=== PATIENT | male | born 1965 | race Caucasian/White ===

== ENCOUNTER 2017-08-16 03:26 | Inpatient (IN) | payer MEDICAID ==
[~2017-08-16] VITALS: Ht 172.7 cm; Wt 63.0 kg
[2017-08-16] VITALS (7 sets, daily range): BP systolic 11–124; BP diastolic 60–81
--- NOTE | 2017-08-16 03:43 | NUR ---
PT TO ED VIA TRIAGE W/ C/O CP X 2 DAYS PT WAS [facility]AY[facility] HERE PRIOR FOR SOB GIVEN MEDICATION W/ NO RELIEF NOW STATES HAVING PAINS IN L CHEST WORSE ON INSPIRATION PT TO [facility] IN GOWN ON MONITOR MD AWARE AWAIT ORDERS AND DISPO
--- NOTE | 2017-08-16 03:57 | NUR ---
NO SIGN OF DISTRESS LABS DRAWN XRAY COMPLETE, EKG RESULTED, CONT TO MONITOR AWAIT FURTHER ORDERS
--- NOTE | 2017-08-16 04:11 | NUR ---
AGENCY DOCUMENTATION DONE BY Staff Name/Title - :MARIANGEL RIDDLE Zuu Onln[facility]arry User ID - : Agency Name - :[facility] Time Documented - From - : To - :
--- NOTE | 2017-08-16 04:12 | NUR ---
PT MEDICATED PER MD ORDER
[2017-08-16 04:13] LABS: PLATELET COUNT 215 x10^3mcL (130-400); RED CELL DISTRIBUTION WIDTH 12.8 % (11.5-14.5)
[2017-08-16 04:14] LABS: BASOPHIL % 4.9 % (0-2)
[2017-08-16 04:18] LABS: CALCIUM 8.2 mg/dL (8.5-10.1); CARBON DIOXIDE 27.6 mmol/L (21-32); CHLORIDE SERUM 105 mmol/L (98-107); CREATININE SERUM 0.9 mg/dL (0.7-1.3); GFR1 > 60 mL/min; GLUCOSE SERUM 96 mg/dL (74-106); POTASSIUM SERUM 3.8 mmol/L (3.5-5.1); SODIUM SERUM 137 mmol/L (136-145)
[2017-08-16 04:24] LABS: ALBUMIN 3.6 g/dL (3.4-5.0); ALKALINE PHOSPHATASE 86 U/L (46-116); ALT/SGPT 28 U/L (16-63); AST/SGOT 24 U/L (15-37); BILIRUBIN TOTAL 0.37 mg/dL (0.20-1.00); TOTAL PROTEIN, SERUM 7.3 g/dL (6.4-8.2)
--- NOTE | 2017-08-16 05:26 | NUR ---
REPORT CALLED TO JONY RN ALL QUESTIONS ASKED AND ANSWERED, PT TX TO FLOOR VIA [facility] IN STABLE CONDITION W/ ALL PERSONAL BELONGINGS
--- NOTE | 2017-08-16 05:35 | NUR ---
RECEIVED PT AWAKE AND ALERT. AOX4. VERBAL WITH CLEAR SPEECH. NO S/S OF RESPIRATORY DISTRESS NOTED. LUNGS CLEAR BILATERALLY. ON TELE 15, SB. PT C/O 5/10 LEFT CHEST PAIN. REFUSED ANY PAIN MEDICATION AT THIS TIME. NO S/S OF DISTRESS NOTED. ABD SOFT AND FLAT. BOWEL SOUNDS ACTIVE. DENIES ANY DISCOMFORT. SKIN WARM AND DRY. IV TO RIGHT WRIST PATENT AND INTACT. NO S/S OF INFECTION NOTED. NO EDEMA NOTED. PULSES PALPABLE. SPOUSE AT BEDSIDE. CALL LIGHT WITHIN REACH. WILL CONTINUE TO MONITOR.
[2017-08-16 06:17] LABS: MAGNESIUM 2.2 mg/dL (1.8-2.4); PHOSPHOROUS 3.9 mg/dL (2.5-4.9)
[2017-08-16 06:20] LABS: CHOLESTEROL/HDL RATIO 4.7
[2017-08-16 06:24] LABS: T3 TOTAL 1.07 ng/mL
[2017-08-16 06:29] LABS: FREE T4 0.88 ng/dL (0.76-1.46); FREE THYROXINE INDEX 2.3 ug/dL (1.4-4.5); T4(THYROXINE) 6.9 ug/dL (4.7-13.3)
--- NOTE | 2017-08-16 07:30 | NUR ---
RECEIVED PT IN BED, A/A/O X4, CALM, COOPERATIVE, BY BEDSIDE. ON TELE # 15, SB, HR 51, DENIES CHEST PAIN OR DISCOMFORT AT THIS TIME. IV SITE AT [facility], RUNNING NS 90 ML/HR. SIDE RAILS UP X 2, BED IN LOW POSITION, CALL LIGHT WITHIN REACH. WILL CONTINUE TO MONITOR.
[2017-08-16 08:09] LABS: AMPHETAMINE QUAL UR NONE DETECTED (NEG <=1000); UA SPECIFIC GRAVITY 1.015 (1.005-1.035); microscopic required? YES; urine erythrocyte TRACE (NEGATIVE)
--- NOTE | 2017-08-16 09:20 | NUR ---
PT IN BED, BY BEDSIDE. PT WATCHING TV. NO RESPIRATORY DISTRESS, PAIN, OR DISCOMFORT AT THIS TIME.
--- NOTE | 2017-08-16 09:52 | NUR ---
ECHO COMPLETED.FAMILY PRESENT
--- NOTE | 2017-08-16 11:45 | NUR ---
PT WALKING IN THE HALLWAY, WALKING WITH HIM. NO RESPIRATORY DISTRESS, PAIN, OR DISCOMFORT NOTED. WILL CONTINUE TO MONITOR.
--- NOTE | 2017-08-16 13:15 | NUR ---
PT IN BED, WATCHING TV WITH . NO RESPIRATORY DISTRESS, PAIN, OR DISCOMFORT NOTED. WILL CONTINUE TO MONITOR.
--- NOTE | 2017-08-16 15:23 | NUR ---
PT C/O L-SIDED CHEST PAIN ("FEELING OF LEON", 5/10 THAT) DOES NOT RADIATE. PT WAS GIVEN NITROGLYCERIN SL X 1, AND WAS EFFECTIVE. EXPLAINED TO PT THAT DR TEAGUE WILL BE COMING IN TO SEE HIM SOMETIME TODAY. PT AND VERBALIZED UNDERSTANDING. WILL CONTINUE TO MONITOR.
--- NOTE | 2017-08-16 17:30 | NUR ---
PT WALKING THE HALLWAY WITH . PT STATES THAT HE FEELS GOOD. NO RESPIRATORY DISTRESS, PAIN, OR DISCOMFORT NOTED. WILL ENDORSE TO NOC SHIFT.
--- NOTE | 2017-08-16 19:40 | NUR ---
PT RESTING AT BEDSIDE, AT BEDSIDE WELL ASSISTING IN TRANSLATING. PT DENIES CP AT THIS TIME, NO SOB OR PALPITATIONS NOTED. RESP EVEN AND UNLABORED ON RA, LUNGS CTA. TELE # 15, SB 50. PT IS ASYMPTOMATIC AT THIS TIME. IV INFUSING TO RT WRIST, NA @ 90ML/HR. NO REDNESS, SWELLING OR PAIN NOTED AT THIS TIME. CALL LIGHT WITHIN REACH, BED IN LOWEST POSITON, WILL CONTINUE TO MONITOR.
--- NOTE | 2017-08-17 05:22 | NUR ---
PT RESTING WELL THROUGHOUT SHIFT W/ MINIMAL INTERRUPTIONS. NO C/O PAIN DURING SHIFT, DENIES CP, DENIES SOB, DENIES DIZZINESS. IN INFUSING TO RT WRIST, NO REDNESS SWELLING OR PAIN NOTED. RESP EVEN AND UNLABORED, SYMMETRICAL RISE AND FALL ON RA. COMFORT AND CARE MEASURES PROVIDED FOR, CALL LIGHT WITHIN REACH, BED IN LOWEST POSITION, WILL CONTINUE TO MONITOR.
[2017-08-17 05:51] VITALS: BP 109/68
--- NOTE | 2017-08-17 07:15 | NUR ---
RECEIVED REPORT FROM NOC GRACIELA WALTER AT THIS TIME. PATIENT IS AWAKE, ALERT AND O X 4. DENIES DIZZINESS. ON ROOM AIR, NO DISTRESS NOTED, LUNG SOUNDS CLEAR, I.S. AT THE BEDSIDE. ON TELE # 15, DENIES ANY CHEST PAIN/DISCOMFORT AT THIS TIME. PULSES MODERATE, NO EDEMA. BOWEL SOUNDS ACTIVE. SKIN WARM AND DRY. IV TO RIGHT WRIST INTACT. CALL LIGHT WITH IN REACH.
--- NOTE | 2017-08-17 07:28 | NUR ---
PT RESTING IN BED, ALL CARE ENDORSED TO DAY SHIFT NURSE, JARED LIGHT WITHIN REACH, BED IN LOWEST POSITION.
--- NOTE | 2017-08-17 11:07 | NUR ---
PATIENT IS AMBULATING IN [place] AT THIS TIME. GAIT IS STEADY, TOLERATING ACTIVITY WELL.
[2017-08-17 12:02] VITALS: BP 118/76
[2017-08-17] MEDS ORDERED: TYL325 PO (12:02)
--- NOTE | 2017-08-17 13:20 | NUR ---
DISCHARGE INSTRUCTIONS GIVEN TO PATIENT AND HIS AT THIS TIME. GAVE PATIENT DISCHARGE PACKET, A 'S NOTE FOR WORK AND A NOTE FOR HIS PRIMARY. TAUGHT ABOUT USE OF HIS RESCUE INHALER AND SIDE EFFECTS. PATIENT AND HIS VERBALIZE UNDERSTANDING. IV REMOVED CATH INTACT. ID BAND REMOVED. TELE # 15 REMOVED AND RETURNED TO [facility].
== END 2017-08-17 13:30 | disposition home or self-care (01) | DRG 141 ==
LOC: ED 03:26 → DU 05:06 → EDBD 05:06 → DU 05:28
PROVIDERS: Emergency Medicine; ADMIT Family Medicine
DX: J45.901 Unspecified asthma with (acute) exacerbation (principal); N17.0 Acute kidney failure with tubular necrosis; R73.03 Prediabetes; E78.5 Hyperlipidemia, unspecified; E03.9 Hypothyroidism, unspecified; Z68.21 Body mass index [BMI] 21.0-21.9, adult
CPT/HCPCS: 82962; 83880; 84439; 85378; 94150; J7030; J7613; Q0092

== ENCOUNTER 2018-08-02 18:11 | Inpatient (IN) | payer MEDICAID ==
[~2018-08-02] VITALS: Ht 170.2 cm; Wt 61.7 kg
[~2018-08-02 18:11] MED LIST: TYL325 PO
[2018-08-02 18:34] VITALS: Ht 170.2 cm; Wt 61.7 kg
[2018-08-02 19:21] LABS: BASOPHIL % 0.7 % (0-2); PLATELET COUNT 202 x10^3mcL (130-400); RED CELL DISTRIBUTION WIDTH 13.3 % (11.5-14.5)
[2018-08-02 19:26] LABS: CALCIUM 8.3 mg/dL (8.5-10.1); CARBON DIOXIDE 25.3 mmol/L (21-32); CHLORIDE SERUM 104 mmol/L (98-107); CREATININE SERUM 0.8 mg/dL (0.7-1.3); GFR1 > 60 mL/min; GLUCOSE SERUM 92 mg/dL (74-106); POTASSIUM SERUM 3.5 mmol/L (3.5-5.1); SODIUM SERUM 137 mmol/L (136-145)
[2018-08-02 19:30] LABS: ALBUMIN 3.8 g/dL (3.4-5.0); ALKALINE PHOSPHATASE 77 U/L (46-116); ALT/SGPT 23 U/L (16-63); AST/SGOT 23 U/L (15-37); BILIRUBIN TOTAL 0.2 mg/dL (0.20-1.00); TOTAL PROTEIN, SERUM 7.6 g/dL (6.4-8.2)
[2018-08-02 19:42] LABS: FREE T4 0.92 ng/dL (0.76-1.46); FREE THYROXINE INDEX 1.9 ug/dL (1.4-4.5); T4(THYROXINE) 5.7 ug/dL (4.7-13.3)
[2018-08-02 19:44] LABS: T3 TOTAL 1.03 ng/mL
[2018-08-02 19:49] LABS: AMPHETAMINE QUAL UR NONE DETECTED (See below)
[2018-08-02 21:39] LABS: UA SPECIFIC GRAVITY >=1.030 (1.005-1.035); microscopic required? YES; urine erythrocyte 1+ (NEGATIVE)
[2018-08-02 21:51] VITALS: BP 110/73
[2018-08-02 21:54] LABS: CHOLESTEROL/HDL RATIO 4.6
[2018-08-03 04:40] LABS: BASOPHIL % 0.6 % (0-2); PLATELET COUNT 191 x10^3mcL (130-400); RED CELL DISTRIBUTION WIDTH 13.6 % (11.5-14.5)
[2018-08-03 04:49] LABS: CALCIUM 7.5 mg/dL (8.5-10.1); CARBON DIOXIDE 26.5 mmol/L (21-32); CHLORIDE SERUM 107 mmol/L (98-107); CREATININE SERUM 0.7 mg/dL (0.7-1.3); GFR1 > 60 mL/min; GLUCOSE SERUM 86 mg/dL (74-106); POTASSIUM SERUM 3.4 mmol/L (3.5-5.1); SODIUM SERUM 139 mmol/L (136-145)
[2018-08-03 04:59] VITALS: BP 123/72
[2018-08-03 09:36] VITALS: BP 121/67
[2018-08-03 12:51] VITALS: BP 121/67
== END 2018-08-03 14:46 | disposition home or self-care (01) | DRG 243 ==
LOC: ED 18:11 → DU 20:55
PROVIDERS: Emergency Medicine; Family Medicine
DX: K21.9 Gastro-esophageal reflux disease without esophagitis (principal); E78.5 Hyperlipidemia, unspecified; R31.9 Hematuria, unspecified; Z68.21 Body mass index [BMI] 21.0-21.9, adult
CPT/HCPCS: 83880; 84439; 90658; J2060; J7030; Q0092